=== PATIENT | male | born 1960 | race Caucasian/White ===

== ENCOUNTER 2021-06-01 22:30 | Emergency (ER) | payer BC ==
--- NOTE | 2021-06-01 22:52 | EDM.PDOC ---
ED HPI GENERAL MEDICAL PROBLEM - General Chief Complaint: Respiratory Problem Stated Complaint: Breathing sounds different, exposed to COVID Time Seen by Provider: 06/01/21 22:48 Source of Information: Reports: Patient History Limitations: Reports: No Limitations - History of Present Illness INITIAL COMMENTS - FREE TEXT/NARRATIVE: Patient comes to ER requesting a Covid 19 test. Does not want any additional labs/workup. Reports mild cough, congestion for several days. No fevers. Mild nausea. No other changes. 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 He wants to know if he is positive and if so, would like to be set up for Monoclonals. Smoker. Previous TN with stents. - Related Data Allergies Allergy/AdvReac Type Severity Reaction Status Date / Time No Known Allergies Allergy Verified 06/01/21 22:51 Home Meds: Home Meds Clopidogrel [Plavix] 75 mg PO DAILY 04/21/16 [History] Metoprolol Tartrate 37.5 mg PO DAILY 04/21/16 [History] traMADol [Ultram] 50 mg PO Q4H PRN #12 tablet 04/21/16 [Rx] Ezetimibe 10 mg PO DAILY 06/01/21 [History] Isosorbide Mononitrate [Imdur] 30 mg PO DAILY 06/01/21 [History] Losartan [Cozaar] 25 mg PO DAILY 06/01/21 [History] Rivaroxaban [Xarelto] 15 mg PO DAILY 06/01/21 [History] Sotalol [Betapace] 80 mg PO Q12HR 06/01/21 [History] Past Medical History Cardiovascular History: Reports: Hypertension, [place], Stents Respiratory History: Reports: Sleep Apnea - Infectious Disease History Infectious Disease History: Reports: Chicken Pox, Influenza, Measles - Past Surgical History Cardiovascular Surgical History: Reports: Coronary Artery Stent GI Surgical History: Reports: Colonoscopy, EGD Musculoskeletal Surgical History: Reports: Other (See Below) Social & Family History - Tobacco Use Tobacco Use Status *Q: Current Every Day Tobacco User - Caffeine Use Caffeine Use: Reports: Coffee, Soda ED ROS GENERAL - Review of Systems Review Of Systems: Comprehensive ROS is negative, except as noted in HPI. ED EXAM, GENERAL - Physical Exam Exam: See Below Exam Limited By: No Limitations General Appearance: Alert, WD/WN, No Apparent Distress Eye Exam: Bilateral Eye: EOMI, PERRL Ears: Normal External Exam, Normal Canal, Hearing Grossly Normal Nose: No: Nasal Deformity, Nasal Swelling, Nasal Drainage Throat/Mouth: Normal Lips, Normal Oropharynx, Normal Voice, No Airway Compromise Head: Atraumatic, Normocephalic Neck: Normal Inspection, Supple, Non-Tender, Full Range of Motion Respiratory/Chest: No Respiratory Distress, Lungs Clear, Normal Breath Sounds, No Accessory Muscle Use Cardiovascular: Regular Rate, Rhythm, No Murmur GI/Abdominal: Soft, Non-Tender (Male) Exam: Deferred Rectal (Males) Exam: Deferred Back Exam: No: Muscle Spasm Extremities: Non-Tender, Normal Capillary Refill Neurological: Alert, Oriented, Normal Cognition, Normal Gait Psychiatric: Normal Affect, Normal Mood Skin Exam: Warm, Dry, Intact, Normal Color Course - Orders/Labs/Meds Labs: Laboratory Tests 06/01/21 Range/Units 22:48 SARS-CoV-2 Ag (Rapid) Negative (NEGATIVE) - Re-Assessments/Exams Free Text/Narrative Re-Assessment/Exam: 06/01/21 22:54 Covid antigen test ordered. 06/01/21 23:16 Covid test negative. Patient reassured. He says that he is feeling good overall. To follow up as needed. Departure - Departure Time of Disposition: 23:16 Disposition: Home, Self-Care 01 Condition: Good Clinical Impression: Viral respiratory infection - Discharge Information *PRESCRIPTION DRUG MONITORING PROGRAM REVIEWED*: Not Applicable *COPY OF PRESCRIPTION DRUG MONITORING REPORT IN PATIENT JC: Not Applicable Instructions: Upper Respiratory Infection, Adult, [id number] Forms: ED Department Discharge Additional Instructions: Follow up as needed if you have additional problems or concerns.
[2021-06-01 23:49] VITALS: BP 82/49; PULSE 60
== END 2021-06-01 23:35 | disposition home or self-care (01) ==
LOC: LL.ED 22:30
DX: B34.9 Viral infection, unspecified (principal); I10 Essential (primary) hypertension; I25.2 Old myocardial infarction; Z72.0 Tobacco use; Z95.5 Presence of coronary angioplasty implant and graft; Z79.899 Other long term (current) drug therapy; Z79.01 Long term (current) use of anticoagulants; Z20.822 Contact with and (suspected) exposure to COVID-19
CPT/HCPCS: 87426; 99283

== ENCOUNTER 2022-09-28 15:38 | Emergency (ER) | payer BC ==
[2022-09-28] MEDS ORDERED: Sodium Chloride 0.9% 10 ML Syringe FLUSH PRN (15:57)
[2022-09-28] MEDS ORDERED: Iopamidol 612 MG/ML 100 ML Bottle IVPUSH STA (16:01)
[2022-09-28 16:45] LABS: ANION GAP 8.7 meq/L (7-15); CHLORIDE,CL 106 mmol/L (98-107); SODIUM,NA 141 mmol/L (136-145)
[2022-09-28 16:47] LABS: ESTIMATED GFR 76 mL/min (>=60)
[2022-09-28 16:58] LABS: CORONAVIRUS COVID-19 NAA NEGATIVE (NEGATIVE); RESPIRATORY SYNCYTIAL VIR NAA NEGATIVE (NEGATIVE)
[2022-09-28 17:25] VITALS: BP 133/89; PULSE 59
== END 2022-09-28 17:48 | disposition home or self-care (01) ==
LOC: LL.ED 15:38
DX: S39.011A Strain of muscle, fascia and tendon of abdomen, initial encounter (principal); I10 Essential (primary) hypertension; I25.2 Old myocardial infarction; Z91.030 Bee allergy status; Z79.899 Other long term (current) drug therapy; Z79.01 Long term (current) use of anticoagulants; Z79.82 Long term (current) use of aspirin; Z20.822 Contact with and (suspected) exposure to COVID-19
CPT/HCPCS: 0241U; 36415; 71046; 74177; 80053; 82550; 83605; 84484; 85025; 93005; 93010; 99284; Q9967

== ENCOUNTER 2024-05-10 08:51 | Day surgery (SDC) | payer BC ==
[~2024-05-10 08:51] MED LIST: Midazolam 1 MG/ML 2 ML SDV ONE; Propofol 200 MG/20 ML SDV ONE; Sodium Chloride 0.9% 10 ML Syringe FLUSH PRN
[2024-05-10] MEDS: Lactated Ringers 1,000 ML IV SCH (09:29)
[2024-05-10 10:46] VITALS: BP 103/61; PULSE 65
== END 2024-05-10 11:11 | disposition home or self-care (01) ==
LOC: LL.SDS 08:51
PROVIDERS: ATTEND Surgery
DX: K57.30 Diverticulosis of large intestine without perforation or abscess without bleeding (principal); I10 Essential (primary) hypertension; I48.0 Paroxysmal atrial fibrillation; I48.92 Unspecified atrial flutter; E78.49 Other hyperlipidemia; I25.5 Ischemic cardiomyopathy; J43.2 Centrilobular emphysema; I25.10 Atherosclerotic heart disease of native coronary artery without angina pectoris; F17.210 Nicotine dependence, cigarettes, uncomplicated; Z79.01 Long term (current) use of anticoagulants; Z79.899 Other long term (current) drug therapy
CPT/HCPCS: 00812; J2250; J2704; J7120